=== PATIENT | male | born 1945 | race Caucasian/White ===

== ENCOUNTER → 2016-11-14 | Outpatient (CLI) | payer OTHER ==
[~2016-11-14] VITALS: Ht 182.9 cm; Wt 90.7 kg
[~2016-11-14] MED LIST: ALEVE220 MG PO; ASPIR 8181 MG PO; B12INJ IM; COZAAR100 MG PO; FISH OIL 1,001000 M2 PO; HYDROCHLOROTHIA25 M2 PO; IRON325 PO; LIPITOR 20 MG T20 M1 PO; METFORMIN HCL500 MG PO; PEPCID20 MG PO; PLAVIX 75 MG TA75 M1 PO; VITAMIN D1000 UNI1 PO; XANAX 0.5 MG0.5 MG PO
--- NOTE | ~2016-11-14 | S ---
[facility] [place] [address] SURGICAL PATH RPT PROCEDURE Name: ANTHONY SAHU JR Room #: REG CL Ezra.#: [id number] Admission: 11/14/16 Date of : 45 Discharge: Report #: [id number] Path Case #: [id number] PATHOLOGY REPORT COLLECTION DATE: 11/14/2016 RECEIVED DATE: 11/14/2016 SUBMITTING PHYS: Dr. Israel Harris OTHER PHYS: Dr. Tarun Rice SPECIMEN(S) RECEIVED: A.Duodenal biopsy * * * * * * * * * * * * FINAL DIAGNOSIS: Small bowel mucosa, duodenum, endoscopic biopsy: - No diagnostic abnormalities present. - Negative for villous blunting or increase in intraepithelial lymphocytosis. (IUV:csd; d/t: 11/16/2016) PATHOLOGIST: Linsey Ibarra M.D. REPORT ELECTRONICALLY SIGNED BY: Linsey Ibarra M.D. DATE/TIME: 11/16/2016 16:34 * * * * * * * * * * * * GROSS PATHOLOGY: Received in formalin labeled "Anthony Sahu Jr., duodenal biopsy, anemia, R/O sprue," are four segments of garzon soft tissue measuring 0.8 x 0.8 x 0.2 cm in aggregate dimensions and ranging from 0.3 to 0.4 cm in maximum dimension. The specimen is submitted entirely in cassette A1. (CAA; 11/15/2016) CLINICAL HISTORY: Anemia, R/O sprue INITIAL CPT CODE(S): A; 03058 Professional services performed by [facility] at [facility] [address] , [place] [address] Technical services performed by [facility] at [address] [place] [id number]. [facility] [address] [place] [address] SURGICAL PATH RPT PROCEDURE Name: ANTHONY SAHU Room #: REG CL Ezra.#: [id number] Admission: 11/14/16 Date of : 45 Discharge: Report #: [id number] Path Case #: [id number] [facility] [address] [address] PHONE: [phone] DIRECTOR: José Souza M.D. * * * END OF REPORT * * *
--- NOTE | ~2016-11-14 | P ---
[facility] [place] [address] PROCEDURE REPORT Name: ADELINADANUTA Donovan [facility] [id number] Admission: 11/14/16 Attend Phys: Israel Matos Discharge: Date of : 45 Report #: [id number] THIS REPORT FOR: //name// CC: Israel Rice MD DATE OF SERVICE: 11/14/2016 PROCEDURE PERFORMED: Incomplete colonoscopy. HISTORY OF PRESENT ILLNESS: The patient is a 71-year-old male with a history of iron-deficiency anemia. He denies any blood in his stools. Plan is for EGD and colonoscopy today. EGD was performed, which showed small hiatal hernia, but otherwise normal. The patient denies any obvious blood in the stools. He does have history of taking aspirin and Plavix. No family history of colon cancer. DESCRIPTION OF PROCEDURE: The risks and benefits of the procedure were explained to the patient, those risks including but not limited to bleeding, perforation and the risk of sedation. He understood these risks and gave informed consent. Sedation was given using propofol per anesthesia. Next, a digital rectal exam was initially performed, which was normal. Next, using a standard [employer] colonoscope, the scope was placed in the patient's anus and advanced under direct vision into the sigmoid colon, at which point, prep was poor throughout this area. Several washings and aspirations were performed. I attempted to advance the scope further into the sigmoid colon, but there was a large amount of stool. At this point, it was obvious we could not proceed with colonoscopy due to incomplete prep, the scope was then withdrawn and the procedure terminated. The patient tolerated the procedure well. IMPRESSION: Incomplete colonoscopy due to poor prep. RECOMMENDATIONS: We will discuss options with the patient including re-prepping today for possible colonoscopy tomorrow or rescheduling in the future. Thank you for allowing me to participate in his care. <ELECTRONICALLY SIGNED> By: Israel Harris MD 11/15/16 1433 0850 1058 Israel Harris MD /nt
--- NOTE | ~2016-11-14 | P ---
[facility] [place] [address] PROCEDURE REPORT Name: DANUTA SAHU Room #: REG [employer]#: [id number] Admission: 11/14/16 Attend Phys: Israel Matos Discharge: Date of : 45 Report #: [id number] THIS REPORT FOR: //name// CC: Israel Rice MD DATE OF SERVICE: 11/14/2016 PROCEDURE PERFORMED: Upper endoscopy with biopsies. HISTORY OF PRESENT ILLNESS: The patient is a 71-year-old male with a history of anemia. Denies any obvious blood in his stools. He denies any abdominal pain, no dysphagia. He is on aspirin and Plavix on a regular basis. He also takes Pepcid. No family history of colon cancer. Plan is for EGD and colonoscopy today. DESCRIPTION OF PROCEDURE: The risks and benefits of the procedure were explained to the patient, those risks including but not limited to bleeding, perforation and the risk of sedation. He understood these risks and gave informed consent. Sedation was given using propofol per anesthesia. Next, using a standard [employer] upper endoscope, the scope was placed in the patient's mouth and advanced under direct vision through the esophagus, stomach and into the second portion of the duodenum. The esophagus was normal throughout. The GE junction was normal. A mild Schatzki's ring was noted. Again, the patient denies any dysphagia. Upon entering the stomach, a small hiatal hernia was noted. Overall, the gastric mucosa was normal. The pylorus was normal and patent. The duodenal bulb, first and second portion were all normal. Because of his history of anemia, biopsies were obtained to rule out the possibility of celiac sprue. The scope was then withdrawn and the procedure terminated. The patient tolerated the procedure well. IMPRESSION: 1. Mild Schatzki's ring. 2. Small hiatal hernia. 3. Otherwise, normal upper endoscopy. RECOMMENDATIONS: 1. Await biopsy results. 2. We will proceed with colonoscopy ___. [address] [place] [address] PROCEDURE REPORT Name: DANUTA SAHU Room #: REG STORMY Zavala#: [id number] Admission: 11/14/16 Attend Phys: Israel Matos Discharge: Date of : 45 Report #: [id number] Thank you for allowing me to participate in his care. <ELECTRONICALLY SIGNED> By: Israel Harris MD 11/15/16 1433 0839 1006 Israel Harris MD /nt
== END ==
LOC: GI 07:03
DX: K22.2 Esophageal obstruction (principal); D50.8 Other iron deficiency anemias; K44.9 Diaphragmatic hernia without obstruction or gangrene; I10 Essential (primary) hypertension; E78.00 Pure hypercholesterolemia, unspecified; E11.9 Type 2 diabetes mellitus without complications; Z86.73 Personal history of transient ischemic attack (TIA), and cerebral infarction without residual deficits
CPT/HCPCS: 62110; 62900

== ENCOUNTER → 2016-11-15 | Outpatient (CLI) | payer OTHER ==
--- NOTE | ~2016-11-15 | P ---
[facility] [place] [address] PROCEDURE REPORT Name: ADELINADANUTA Donovan Room #: REG [facility] [id number] Admission: 11/15/16 Attend Phys: Israel Matos Discharge: Date of : 45 Report #: [id number] THIS REPORT FOR: //name// CC: Israel Rice MD DATE OF SERVICE: 11/15/2016 PROCEDURE PERFORMED: Colonoscopy with biopsies. HISTORY OF PRESENT ILLNESS: The patient is a 71-year-old male with a history of iron deficiency anemia. Upper endoscopy was performed yesterday, which was essentially negative. Colonoscopy was attempted; however, there was poor prep. He therefore returns today reprepped for colonoscopy. He does have a history of rectal polyp in the past. DESCRIPTION OF PROCEDURE: The risks and benefits of the procedure were explained to the patient, those risks including but not limited to bleeding, perforation and the risk of sedation. He understood these risks and gave informed consent. Sedation was given using propofol per anesthesia. Next, a digital rectal exam was initially performed, which was normal. Next, using a standard Acerinon colonoscope, the scope was placed in the patient's anus and advanced under direct vision to the cecum. The overall prep was good. The cecum and ileocecal valve were normal in appearance. Ascending, transverse and descending colon were normal. Multiple small diverticula were noted in the sigmoid colon, no evidence of inflammation. The upper and mid rectum were normal; however, on retroflexion, there was a tattoo area in the very distal rectum just proximal to the dentate line from a previous polypectomy site was noted. Around this area was polypoid tissue that appeared to be adenomatous. This was removed with jumbo biopsy forceps. No other abnormalities were noted. The scope was then withdrawn and the procedure terminated. The patient tolerated the procedure well. IMPRESSION: 1. Very distal rectal tattoo with polypoid tissue removed today. 2. Sigmoid diverticulosis. 3. Otherwise, normal colonoscopy. RECOMMENDATIONS: 1. Await biopsy results. 2. We will proceed with stool Hemoccult testing x3 in the near future. If this is positive, could consider further workup of small bowel. 3. We will likely recommend a repeat flexible sigmoidoscopy in 1 year to reevaluate very distal rectal polypectomy site since this is very sessile in nature. [address] [address] PROCEDURE REPORT Name: DANUTA SAHU JR Room #: REG STORMY Zavala#: [id number] Admission: 11/15/16 Attend Phys: Israel Matos Discharge: Date of : 45 Report #: [id number] Thank you for allowing me to participate in his care. By: 1444 1654 Israel Harris MD /nt
== END ==
LOC: GI 12:02
DX: D53.9 Nutritional anemia, unspecified (principal); Z86.010 Personal history of colon polyps; K57.30 Diverticulosis of large intestine without perforation or abscess without bleeding
CPT/HCPCS: 62110; 62900

== ENCOUNTER → 2017-05-05 | Day surgery (SDC) | payer OTHER ==
[~2017-05-05] VITALS: Ht 180.3 cm; Wt 88.5 kg
--- NOTE | ~2017-05-05 | S ---
[facility] [address] [place] [address] SURGICAL PATH RPT PROCEDURE Name: DANUTA SAHU Room #: REG [facility] M.R.#: [id number] Admission: 05/05/17 Date of : 45 Discharge: Report #: [id number] Path Case #: [id number] PATHOLOGY REPORT DRAFT COLLECTION DATE: 05/05/2017 RECEIVED DATE: 05/05/2017 SPECIMEN(S) RECEIVED: A.Previous polypectomy site
--- NOTE | ~2017-05-05 | P ---
[facility] [place] [address] PROCEDURE REPORT Name: SAHUDANUTA Donovan Room #: REG [facility]#: [id number] Admission: 05/05/17 Attend Phys: Israel Matos Discharge: Date of : 45 Report #: [id number] THIS REPORT FOR: //name// CC: Israel Goodwin November DATE OF SERVICE: 05/05/2017 PROCEDURE PERFORMED: Flexible sigmoidoscopy with biopsies and APC cautery. HISTORY OF PRESENT ILLNESS: The patient is a 72-year-old male with a history of rectal polyp in the distal rectum. I attempted colonoscopy on 11/14/2016. The prep was poor; however, in the rectum, there was evidence of a tattoo in the distal rectum with polyp. Biopsies were obtained at that time. Pathology showed tubular adenoma, no evidence of high grade dysplasia. The patient had a previous colonoscopy by ____ in 2013, in which it was noted he had a polypectomy site removed at that time. Plan is for repeat endoscopy. DESCRIPTION OF PROCEDURE: The risks and benefits of the procedure were explained to the patient, those risks including but not limited to bleeding, perforation, the risk of sedation. He understood these risks and gave informed consent. The patient opted for no sedation for the procedure. Next, a digital rectal exam was initially performed, which was normal. Next, using a standard Fujinon colonoscope, the scope was placed in the patient's anus and advanced under direct vision into the distal sigmoid colon. The prep was excellent. Distal sigmoid colon was normal. In the rectum, the previous tattoo polypectomy site was noted in the distal rectum. No obvious polyp tissue was noted; however, I did obtain several biopsies. I then proceeded to treat the area with an APC cautery as well. No other abnormalities were noted in the rectum. The scope was then withdrawn and the procedure terminated. The patient tolerated the procedure well. IMPRESSION: Previous polypectomy site noted with tattoo. Biopsies obtained and treated with APC cautery. RECOMMENDATIONS: Await biopsy results. Thank you for allowing me to participate in his care. By: 1140 1401 Israel Harris MD /nt
== END | disposition home or self-care (01) ==
LOC: GI 05-03 08:56
DX: Z09 Encounter for follow-up examination after completed treatment for conditions other than malignant neoplasm (principal); Z86.010 Personal history of colon polyps; I10 Essential (primary) hypertension; E11.9 Type 2 diabetes mellitus without complications; E78.00 Pure hypercholesterolemia, unspecified; D64.9 Anemia, unspecified; K21.9 Gastro-esophageal reflux disease without esophagitis; Z86.73 Personal history of transient ischemic attack (TIA), and cerebral infarction without residual deficits; Z79.899 Other long term (current) drug therapy; Z90.49 Acquired absence of other specified parts of digestive tract; Z98.41 Cataract extraction status, right eye; Z98.42 Cataract extraction status, left eye; Z96.1 Presence of intraocular lens; Z85.828 Personal history of other malignant neoplasm of skin; Z88.6 Allergy status to analgesic agent

== ENCOUNTER → 2018-04-11 | Outpatient (CLI) | payer OTHER ==
[~2018-04-11] VITALS: Ht 182.9 cm; Wt 93.0 kg
[~2018-04-11] MED LIST changes: +OMEPRAZOLE40 MG PO
--- NOTE | ~2018-04-11 | P ---
[facility] [place] [address] PROCEDURE REPORT Name: DANUTA SAHU JR Room #: REG [facility] Sally#: [id number] Admission: 04/11/18 Attend Phys: Israel Matos Discharge: Date of : 45 Report #: [id number] THIS REPORT FOR: //name// CC: Israel Loredo DATE OF SERVICE: 04/11/2018 PROCEDURE PERFORMED: Flexible sigmoidoscopy with biopsies and APC cautery. HISTORY OF PRESENT ILLNESS: The patient is a 73-year-old male with a known history of distal rectal polyp on colonoscopy a year ago. Followup had recurrent tubular adenoma despite having the polyp removed and APC cautery. He is here for a 1-year followup. Denies any symptoms at this time. DESCRIPTION OF PROCEDURE: The risks and benefits of the procedure were explained to the patient, those risks including but not limited to bleeding, perforation. The patient did not receive sedation. He understood these risks and gave informed consent. Next, a digital rectal exam was initially performed as normal. Next, using a standard Olympus colonoscope, the scope was placed in the patient's anus and advanced through the rectum. Just above the rectum, at the rectosigmoid area, a moderate amount of stool was noted; however, the previous tattoo was noted in the very distal rectum with new adenomatous polyp tissue noted. I removed this with a [employer] biopsy forceps in a piecemeal fashion. This was just above the dentate line, almost communicating with the dentate line. After the visual polyp tissue was removed, I then treated the area with APC cautery. There was no bleeding after cauterization. The size of the polyp was approximately 8-10 mm in size. At this point, the scope was then withdrawn and the procedure terminated. The patient tolerated the procedure well. IMPRESSION: Recurrent adenomatous polyp in the very distal rectum next to the dentate line, status post removal today with cold biopsy forceps and then treated with APC cautery. RECOMMENDATIONS: 1. Await biopsy results. 2. Consider repeat endoscopy in 1 year or consider possible surgical options. Thank you for allowing me to participate in his care. <ELECTRONICALLY SIGNED> By: Israel Harris MD 04/13/18 0845 1141 0023 Israel Harris MD /nt
--- NOTE | ~2018-04-11 | PATH ---
[facility] [address] [place] [address] PATHOLOGY RPT PROCEDURE Name: SAHU,ANTHONY E Room #: REG STORMY Munguia.#: [id number] Admission: 04/11/18 Date of : 45 Discharge: Report #: [id number] Path Case #: [id number] [facility] Accession Number: [id number] . 01 Material submitted: . BX DISTAL RECTAL POLYP HX ADENOMA . 01 Clinician provided ICD-10: K52.9 . 01 Clinical history: . Pre-OP DX: Colitis Post-OP DX: Colon polyp . 02 Diagnosis: Polyp, distal rectal polyp, endoscopic biopsy: - Tubular adenoma. - Negative for high grade dysplasia. . (IUV:corporate compliance officer; 04/12/2018) MBR/04/12/2018 . 02 Electronically signed: . Linsey Ibarra MD, Pathologist NPI- [id number] . 01 Gross description: . Received in formalin labeled "Anthony Sahu Jr, BX, distal/rectal polyp, Hx of adenoma," are multiple segments of garzon soft tissue measuring 1.8 x 0.6 x 0.2 cm in aggregate dimensions. The specimen is filtered and entirely submitted in cassette A1. (TSD; 04/11/2018) TOB/TOB . 02 Pathologist provided ICD-10: D12.8 . 02 CPT . 109708 Specimen Comment: A courtesy copy of this report has been sent to Specimen Comment: [phone], . Specimen Comment: Report sent to / DR RUBIO Specimen Comment: A duplicate report has been generated due to demographic updates. Performed at: [address] [id number] [address] [address] PATHOLOGY RPT PROCEDURE Name: ANTHONY SAHU JR Room #: REG CLE[facility]any Zavala#: [id number] Admission: 04/11/18 Date of : 45 Discharge: Report #: [id number] Path Case #: [id number] MD Noel Marsh MD Phone: [phone] Performed at: [address] [id number] MD Linsey Ibarra MD Phone: [phone]
== END | disposition home or self-care (01) ==
LOC: GI 09:44
DX: Z09 Encounter for follow-up examination after completed treatment for conditions other than malignant neoplasm (principal); Z86.010 Personal history of colon polyps; D12.8 Benign neoplasm of rectum; I10 Essential (primary) hypertension; E78.00 Pure hypercholesterolemia, unspecified; Z86.73 Personal history of transient ischemic attack (TIA), and cerebral infarction without residual deficits; Z85.828 Personal history of other malignant neoplasm of skin; Z85.46 Personal history of malignant neoplasm of prostate; D64.9 Anemia, unspecified; E11.9 Type 2 diabetes mellitus without complications; K21.9 Gastro-esophageal reflux disease without esophagitis; Z98.41 Cataract extraction status, right eye; Z98.42 Cataract extraction status, left eye; Z98.890 Other specified postprocedural states; Z79.899 Other long term (current) drug therapy; Z88.8 Allergy status to other drugs, medicaments and biological substances; Z79.82 Long term (current) use of aspirin

== ENCOUNTER → 2019-04-24 | Outpatient (CLI) | payer OTHER ==
[~2019-04-24] VITALS: Ht 182.9 cm; Wt 91.6 kg
[~2019-04-24] MED LIST changes: +MIRAPEX0.25 MG PO
--- NOTE | 2019-04-26 10:31 | P ---
[facility] [place] [address] PROCEDURE REPORT Name: SAHUDANUTA Donovan Room #: REG [facility] [id number] Admission: 04/24/19 Attend Phys: Israel Matos Discharge: Date of : 45 Report #: [id number] THIS REPORT FOR: //name// CC: Israel Loredo DATE OF SERVICE: 04/24/2019 PROCEDURE PERFORMED: Flexible sigmoidoscopy with biopsies and APC cautery. HISTORY OF PRESENT ILLNESS: The patient is a 74-year-old male who is well known to me with a history of colon polyps, one in the very distal rectum near the dentate line which we have been monitoring. He has been treated by polypectomy and APC cautery. He is here for a 1-year followup. The area has been tattooed. Plan is for flexible sigmoidoscopy. DESCRIPTION OF PROCEDURE: The risks and benefits of the procedure were explained to the patient, those risks including but not limited to bleeding, perforation. He does not want any sedation and no sedation was given today. He understood these risks and gave informed consent. Digital rectal exam was initially performed, which was normal. Next, using a standard Olympus colonoscope, the scope was placed in the patient's anus and advanced under direct vision into the rectum. There was a fair amount of solid stool. I was able to remove most of this with washings and aspirations. The previous polypectomy site was easily identified with the previous tattoo markings. Just distal to this just above the dentate line there appears to be approximately 5 mm of new adenomatous tissue. This was removed with a biopsy forceps. I then treated the base of this area with APC cautery. No other abnormalities were noted. Again, the visualization was limited in the rest of the rectum and the sigmoid colon due to poor prep in those areas. The scope was then withdrawn and the procedure terminated. The patient tolerated the procedure well. IMPRESSION: Likely small recurrence of adenomatous tissue at previous polypectomy site in the distal rectum near the tattoo status post biopsies and APC cautery. RECOMMENDATIONS: 1. Await biopsy results. 2. If tissue is adenomatous, repeat flexible sigmoidoscopy in [address] [address] PROCEDURE REPORT Name: DANUTA SAHU Room #: REG [facility].#: [id number] Admission: 04/24/19 Attend Phys: Israel Matos Discharge: Date of : 45 Report #: [id number] Thank you for allowing me to participate in his care. <ELECTRONICALLY SIGNED> By: Israel Harris MD 04/26/19 1031 1018 0032 Israel Harris MD /nt
--- NOTE | 2019-04-29 12:06 | PATH ---
[facility] [address] [place] [address] PATHOLOGY RPT PROCEDURE Name: SAHU,ANTHONY E Room #: REG [facility] Ezra.#: [id number] Admission: 04/24/19 Date of : 45 Discharge: Report #: [id number] Path Case #: [id number] [facility] Accession Number: [id number] . 01 Material submitted: . rectum - DISTAL RECTAL POLYP HX ADENOMA. Modifiers: distal . 01 Clinical history: . Preop DX: hx polyps Postop DX: rectal polyp Hx adenoma . 02 Diagnosis: Polyp, distal rectal polyp, endoscopic biopsy: - Superficial fragments showing changes compatible with tubular adenoma, history of adenoma. - Additional fragments showing changes compatible with hyperplastic polyp. - Negative for high-grade dysplasia. (IUV:matt; 04/26/2019) QMS 04/26/2019 1515 Local . 02 Electronically signed: . Linsey Ibarra MD, Pathologist NPI- [id number] . 01 Gross description: . Received in formalin labeled "Anthony Sahu Jr, distal rectal polyp," is a 0.9 x 0.3 x 0.1 cm aggregate of garzon soft tissue fragments and friable, garzon-brown material. The specimen is submitted entirely in cassette A1. (DAC; 04/25/2019) XDC/XDC 04/25/2019 1036 Local . 02 Pathologist provided ICD-10: D12.8, K63.5 . 02 CPT . 491520 Specimen Comment: A courtesy copy of this report has been sent to Specimen Comment: [phone], . Specimen Comment: Report sent to / DR RUBIO Performed at: 01 [place] [id number] [address] [id number] MD Noel Marsh MD Phone: [phone] Performed at: [address] [id number] [address] [address] PATHOLOGY RPT PROCEDURE Name: ANTHONY SAHU JR Room #: REG STORMY Zavala#: [id number] Admission: 04/24/19 Date of : 45 Discharge: Report #: [id number] Path Case #: [id number] MD Linsey Ibarra MD Phone: [phone]
== END | disposition home or self-care (01) ==
LOC: GI 08:02
DX: Z09 Encounter for follow-up examination after completed treatment for conditions other than malignant neoplasm (principal); Z86.010 Personal history of colon polyps; D12.8 Benign neoplasm of rectum; I10 Essential (primary) hypertension; E78.5 Hyperlipidemia, unspecified; K21.9 Gastro-esophageal reflux disease without esophagitis; E11.9 Type 2 diabetes mellitus without complications; Z90.49 Acquired absence of other specified parts of digestive tract; Z85.46 Personal history of malignant neoplasm of prostate; Z85.828 Personal history of other malignant neoplasm of skin; Z98.890 Other specified postprocedural states; Z98.41 Cataract extraction status, right eye; Z86.73 Personal history of transient ischemic attack (TIA), and cerebral infarction without residual deficits; Z98.42 Cataract extraction status, left eye; Z86.2 Personal history of diseases of the blood and blood-forming organs and certain disorders involving the immune mechanism; Z88.8 Allergy status to other drugs, medicaments and biological substances; Z79.82 Long term (current) use of aspirin; Z79.899 Other long term (current) drug therapy

== ENCOUNTER → 2020-04-24 | Outpatient (CLI) | payer OTHER ==
[~2020-04-24] MED LIST changes: +NAPROSYN500 MG PO
== END ==
LOC: LAB 13:55
PROVIDERS: ATTEND Specialist
DX: Z01.812 Encounter for preprocedural laboratory examination (principal); Z20.828 Contact with and (suspected) exposure to other viral communicable diseases

== ENCOUNTER → 2020-07-01 | Outpatient (CLI) | payer OTHER ==
[~2020-07-01] MED LIST changes: +VITAMIN D PO
[2020-07-01 14:45] VITALS: BP 148/78
[2020-07-01 15:20] VITALS: BP 142/81
[2020-07-01 16:00] VITALS: BP 158/74
--- NOTE | 2020-07-01 18:05 | NUR ---
ARRIVED PER WHEELCHAIR FOR INJECTAFER INFUSION. TOLERATED INFUSION WITHOUT ADVERSE REACTION. BP REMAINED STABLE. DC IN STABLE CONDITION. TO RETURN IN ONE WEEK FOR SECOND INFUSION.
== END ==
LOC: OPONC 13:14
PROVIDERS: ATTEND Specialist
DX: D50.9 Iron deficiency anemia, unspecified (principal)
CPT/HCPCS: 95000

== ENCOUNTER → 2020-07-08 | Outpatient (CLI) | payer OTHER ==
[2020-07-08 14:15] VITALS: BP 144/77
[2020-07-08 14:40] VITALS: BP 138/72
[2020-07-08 15:05] VITALS: BP 145/82
--- NOTE | 2020-07-08 15:10 | NUR ---
PT HERE FOR 2ND AND FINAL INJECTAFER INFUSION. REPORTS TOLERATING THE 1ST ONE WITHOUT ADVERSE EFFECTS AND ACTUALLY FEELS A BIT BETTER ALREADY. TOLERATED TODAY'S WITHOUT INCIDENT. STATES HE HAS PLAN TO DO F/U LABS WITH HIS NEW PCP, DR SHELBY SCHUMACHER. VSS. DISMISSED IN STABLE CONDITION.
== END ==
LOC: OPONC 13:58
PROVIDERS: ATTEND Specialist
DX: D50.9 Iron deficiency anemia, unspecified (principal)
CPT/HCPCS: 95000

== ENCOUNTER → 2021-05-18 | Outpatient (CLI) | payer OTHER ==
[~2021-05-18] MED LIST changes: +ASPIRIN EC81 M1 PO; +NORVASC 2.5 MG2.5 MG PO
== END ==
LOC: LAB 05:41
PROVIDERS: ATTEND Student in an Organized Health Care Education/Training Program
DX: Z01.812 Encounter for preprocedural laboratory examination (principal); Z20.822 Contact with and (suspected) exposure to COVID-19

== ENCOUNTER → 2021-05-19 | Outpatient (CLI) | payer OTHER ==
[~2021-05-19] VITALS: Ht 180.3 cm; Wt 82.6 kg
--- NOTE | ~2021-05-19 | P ---
[facility] [place] [address] PROCEDURE REPORT Name: DANUTA SAHU JR Room #: REG STORMY MunguiaVanesa#: [id number] Admission: 05/19/21 Attend Phys: Israel Matos Discharge: Date of : 45 Report #: [id number] THIS REPORT FOR: cc: SHELBY SCHUMACHER MD Physician not on staff Israel Harris MD ~ cc: DATE OF SERVICE: 05/19/2021 PROCEDURE PERFORMED: Flexible sigmoidoscopy with biopsies. HISTORY OF PRESENT ILLNESS: The patient is a 76-year-old male with a history of distal rectal adenomatous polyp, which was sessile. This was removed. He had recurrence, the area was tattooed. Last flexible sigmoidoscopy on 04/29/2020 showed possible recurrence of the polyp tissue. Biopsies were obtained. Pathology showed tubular adenoma, negative for high-grade dysplasia. Plan is for repeat flexible sigmoidoscopy in 1 year. He denies any symptoms. The patient did not want to proceed with any sedation today. DESCRIPTION OF PROCEDURE: The risks and benefits of the procedure were explained to the patient, those risks including but not limited to bleeding, perforation, and he understood these risks and gave informed consent. Sedation was not given today. A digital rectal exam was initially performed, which was normal. Next, using a standard Olympus colonoscope, the scope was placed in the patient's anus and advanced under direct vision into the rectum. There was a large amount of stool in the proximal rectum. I was not able to advance the scope any further at this point. The overall rectum in the upper and midportion appeared normal. There was some stool in the mid portion of the rectum, which did limit visualization. The previous polypectomy site with tattoo was easily identified in the very distal rectum near the dentate line. No obvious recurrence of polyp tissue was noted. Biopsies were obtained between the tattoo area, otherwise normal. The scope was then withdrawn and the procedure terminated. The patient tolerated the procedure well. IMPRESSION: Previous polypectomy site noted. No obvious adenomatous tissue noted; however, biopsies were obtained as described above. RECOMMENDATIONS: 1. Await biopsy results. 2. If biopsies show adenoma, repeat flexible sigmoidoscopy in [address] [address] PROCEDURE REPORT Name: DANUTA SAHU Room #: REG STORMY Zavala#: [id number] Admission: 05/19/21 Attend Phys: Israel Matos Discharge: Date of : 45 Report #: [id number] Thank you for allowing me to participate in his care. By: 1132 21 Israel Harris MD /donna
--- NOTE | 2021-05-21 21:09 | PATH ---
[facility] [address] [place] [address] PATHOLOGY RPT PROCEDURE Name: ANTHONY SAHU JR Room #: REG [facility] Sally#: [id number] Admission: 05/19/21 Date of : 45 Discharge: Report #: [id number] Path Case #: [id number] [facility] Accession Number: [id number] . 01 Material submitted: . rectum - DISTAL RECTAL BIOPSY. Modifiers: distal . 01 Clinical history: . FLEX SIG HX OF POLYPS . 02 Diagnosis: Distal rectum, endoscopic biopsy: - Tubular adenoma. - Negative for high-grade dysplasia or malignancy. (ANK:matt; 05/21/2021) QMS 05/21/2021 1440 Local . 02 Electronically signed: . Erin Talamantes MD, Pathologist NPI- [id number] . 01 Gross description: . Received in formalin labeled "Sahu Jr., Anthony, distal rectal BX" are multiple garzon-brown soft tissue fragments measuring in aggregate 0.6 x 0.2 x 0.1 cm. The specimen is submitted entirely in A1. ([facility]; 05/20/2021) [facility] 05/20/2021 1008 Local . 02 Pathologist provided ICD-10: D12.8 . 02 CPT . 703255 Specimen Comment: A courtesy copy of this report has been sent to [phone] Specimen Comment: [phone] Specimen Comment: Report sent to / DR SCHUMACHER Performed at: [address], [place], [place] [id number] MD Jefe John MD Phone: [phone] Performed at: [address] [id number] MD Linsey Ibarra MD Phone: [phone]
== END | disposition home or self-care (01) ==
LOC: GI 10:40
PROVIDERS: ATTEND Specialist
DX: Z09 Encounter for follow-up examination after completed treatment for conditions other than malignant neoplasm (principal); Z86.010 Personal history of colon polyps; D12.8 Benign neoplasm of rectum; I10 Essential (primary) hypertension; E11.9 Type 2 diabetes mellitus without complications; E78.5 Hyperlipidemia, unspecified; Z98.890 Other specified postprocedural states; Z79.899 Other long term (current) drug therapy; Z85.46 Personal history of malignant neoplasm of prostate; Z86.73 Personal history of transient ischemic attack (TIA), and cerebral infarction without residual deficits; Z85.828 Personal history of other malignant neoplasm of skin; Z90.49 Acquired absence of other specified parts of digestive tract; Z98.41 Cataract extraction status, right eye; Z98.42 Cataract extraction status, left eye; Z88.8 Allergy status to other drugs, medicaments and biological substances